=== PATIENT | female | born 1975 | race Hispanic/Latino ===

== ENCOUNTER 2018-05-16 11:58 | Emergency (ER) | payer MEDICAID ==
[2018-05-16 12:02] VITALS: BMI 23.1
[2018-05-16 12:18] VITALS: RESP 18; TEMP 98.3
[2018-05-16] MEDS ORDERED: Albuterol-Ipratrop 3 mg / 0.5 (3 ml) UD IH STA (12:23)
--- NOTE | 2018-05-16 12:28 | ED PDOC ---
Arrival/HPI - General Chief Complaint: Respiratory Distress Time Seen by Provider: 05/16/18 12:04 Historian: Patient, EMS - History of Present Illness Narrative History of Present Illness (Text): 42 yr old F w/ hx of asthma, Bipolar, depression, hypothyroid p/w sob. Sob began x2d ago, feels exactly alike previous asthma exacerbation. She notes using her inhaler at home without much improvement. No recent steroid usage. No new medications. No B-nestor usage. No leg swelling. No hx of blood clots. No chest pain. She notes going to an urgent care today who sent her here because of her asthma. No other complaints. Past Medical History - Infectious Disease Hx of Infectious Diseases: None - Tetanus Immunization Tetanus Immunization: Unknown - Past Medical History Past Medical History: Unable to Obtain - Cardiac Hx Pacemaker: No - Pulmonary Hx Asthma: Yes - Neurological Hx Paralysis: No - Hematological/Oncological Hx Cancer: Yes (thyroid ca) - Musculoskeletal/Rheumatological Hx Musculoskeletal Disorders: No - Psychiatric Hx Bipolar Disorder: Yes Hx Depression: Yes Hx Emotional Abuse: No Hx Physical Abuse: No Hx Substance Use: No Other/Comment: ADHD - Past Surgical History Past Surgical History: Unable to Obtain - Surgical History Hx Thyroidectomy: Yes Other/Comment: oophorectomy - Anesthesia Hx Anesthesia: Yes Hx Anesthesia Reactions: No Hx Malignant Hyperthermia: No - Suicidal Assessment Feels Threatened In Home Enviroment: No Family/Social History Family/Social History: Unknown Family HX Smoking Status: Light Smoker < 10 Cigarettes Daily Hx Alcohol Use: No Hx Substance Use: No Hx Substance Use Treatment: No Allergies/Home Meds Allergies/Adverse Reactions: Allergies azithromycin [From Zithromax] Allergy (Verified 05/16/18 12:18) RASH cat dander Allergy (Verified 05/16/18 12:18) CONGESTION pneumococcal vaccine Allergy (Verified 05/16/18 12:18) SWELLING Home Medications: Home Meds Medication Instructions Recorded Confirmed Escitalopram [Lexapro] 20 mg PO DAILY 10/14/15 05/16/18 Lamotrigine [Lamotrigine ER] 300 mg PO HS 10/14/15 05/16/18 Levothyroxine Sodium [Synthroid] 125 mcg PO DAILY 10/14/15 05/16/18 Albuterol HFA [Ventolin HFA 90 2 puff IH [id number] 05/16/18 05/16/18 mcg/actuation (8 g)] Review of Systems - Review of Systems Constitutional: absent: Fatigue, Weight Change, Fevers, Night Sweats Eyes: absent: Vision Changes, Photophobia, Eye Pain ENT: absent: Hearing Changes, Tinnitus, TMJ Pain, Voice Changes, Sore Throat, Rhinorrhea, Epistaxis, Sinus Congestion Respiratory: SOB, Wheezing. absent: Cough, Sputum Cardiovascular: absent: Chest Pain, Palpitations, Edema, Calf Pain, CHAPA Gastrointestinal: absent: Abdominal Pain, Stool Changes, Constipation, Diarrhea, Nausea, Vomiting, Appetite Changes, Hematochezia, Hematemesis, Anorexia, Food Intolerance Genitourinary Female: absent: Dysuria, Frequency, Hematuria Musculoskeletal: absent: Arthralgias, Back Pain, Neck Pain Skin: absent: Rash, Pruritis, Skin Lesions Neurological: absent: Headache, Dizziness, Focal Weakness Endocrine: absent: Diaphoresis, Polyuria Physical Exam Vital Signs Reviewed: Yes Vital Signs Temp Pulse Resp BP Pulse Ox 05/16/18 12:18 18 99 05/16/18 12:17 98.3 F 116 H 18 128/87 95 Temperature: Afebrile Blood Pressure: Normal Pulse: Regular Respiratory Rate: Normal Appearance: Positive for: Well-Appearing, Non-Toxic, Comfortable Pain Distress: None Mental Status: Positive for: Alert and Oriented X 3 - Systems Exam Head: Present: Atraumatic Pupils: Present: PERRL Extroacular Muscles: Present: EOMI Conjunctiva: Present: Normal Ears: Present: Normal, NORMAL TM Mouth: Present: Moist Mucous Membranes Pharnyx: Present: Normal. No: ERYTHEMA, EXUDATE Nose (External): Present: Atraumatic Nose (Internal): Present: Normal Inspection Neck: Present: Normal Range of Motion. No: Meningeal Signs, MIDLINE TENDERNESS Respiratory/Chest: Present: Good Air Exchange, Wheezes (mild, at bases). No: Respiratory Distress, Accessory Muscle Use, Decreased Breath Sounds, Rales, Ret racting, Rhonchi, Tachypneic Cardiovascular: Present: Regular Rate and Rhythm, Normal S1, S2. No: Murmurs Abdomen: Present: Normal Bowel Sounds. No: Tenderness, Distention, Peritoneal Signs Back: Present: Normal Inspection. No: CVA Tenderness Upper Extremity: Present: Normal Inspection. No: Cyanosis Lower Extremity: Present: Normal Inspection. No: Edema Neurological: Present: GCS=15, CN II-XII Intact, Speech Normal Skin: Present: Warm, Dry, Normal Color. No: Rashes Psychiatric: Present: Alert, Oriented x 3, Normal Insight. No: Normal Mood, Anxious, Agitated, Depressed Mood, Suicidal Ideation, Homicidal Ideation, Delusional Medical Decision Making ED Course and Treatment: 42 yr old F w/ hx of asthma, previous admissions but no intubations p/w sob. Wheezing on exam, mild asthma on evaluation. No chest pain. No SI or HI or depression or hallucinations. No new abx usage. Likely Mild asthma exacerbation. Was given solumedrol IM, x2 duoneb per EMS with improvement. Speaking in full sentences in no distress, will seek XR. Pending imaging, reassessment 05/16/18 13:46 Procedure: Chest X-ray Time: 05/16/2018 13:35:07 Dictator: Dr. Damon. James BURROUGHS Impression: No active disease. 05/16/18 14:05 xray unremarkble pt in NAD, speaking in full sentences /w out distress lungs CTA b/l clear or d/c, given return indications, scripts and f/u, pt agreeable to plan. Disposition/Present on Arrival - Present on Arrival Any Indicators Present on Arrival: No History of DVT/PE: No History of Uncontrolled Diabetes: No Urinary Catheter: No History of Decub. Ulcer: No History Surgical Site Infection Following: None - Disposition Have Diagnosis and Disposition been Completed?: Yes Diagnosis: Asthma exacerbation Disposition: HOME/ ROUTINE Disposition Time: 14:06 Condition: GOOD Discharge Instructions (ExitCare): Asthma in Adults, Asthma, Adult (DC) Additional Instructions: STOP SMOKING. RETURN IF YOU FEEL MORE SOB THAT IS NOT RELIEVED WITH THE INHALER AND OR STEROIDS JEROMY SCHWAB, thank you for letting us take care of you today. Your provider was Salvador Maldonado and you were treated for SOB. The emergency medical care you received today was directed at your acute symptoms. If you were prescribed any medication, please fill it and take as directed. It may take several days for your symptoms to resolve. Return to the Emergency Department if your symptoms worsen, do not improve, or if you have any other problems. Please contact your doctor or call one of the physicians/clinics you have been referred to that are listed on the Patient Visit Information form that is included in your discharge packet. Bring any paperwork you were given at discharge with you along with any medications you are taking to your follow up visit. Our treatment cannot replace ongoing medical care by a primary care provider outside of the emergency department. Thank you for allowing the [facility] team to be part of your care today. If you had an X-Ray or CT scan: A Radiologist will review the ED reading if any change in treatment is needed we will contact you. If you had a blood, urine, or wound culture: It will take several days for the results, if any change in treatment is needed we will contact you. If you had an STI test: It will take 48 hours for the results. Please call after 1 week if you have not heard back. Prescriptions: Albuterol HFA [Ventolin HFA 90 mcg/actuation (8 g)] 1 puff IH Q4H PRN 90 Days inhaler PRN Reason: Shortness Of Breath predniSONE [Prednisone] 40 mg PO DAILY 5 Days #10 tab Referrals: Tressa Iqbal MD [Primary Care Provider] - Follow up with primary Flakito Calderon MD [Staff Provider] - Follow up with primary Forms: Mtime (H[place]ian)
--- NOTE | 2018-05-16 13:38 | RAD ---
Date of service: 05/16/2018 HISTORY: sob, asthma COMPARISON: 03/25/2013 TECHNIQUE: Chest PA and lateral FINDINGS: LUNGS: No active pulmonary disease. PLEURA: No significant pleural effusion identified. No pneumothorax apparent. CARDIOVASCULAR: No aortic atherosclerotic calcification present. Normal cardiac size. No pulmonary vascular congestion. OSSEOUS STRUCTURES: No significant abnormalities. VISUALIZED UPPER ABDOMEN: Normal. OTHER FINDINGS: None. IMPRESSION: No active disease.
[2018-05-16 14:24] VITALS: BP 109/49; PULSE 107; O2SAT 94
== END 2018-05-16 14:23 | disposition home or self-care (01) ==
LOC: ED 11:58
DX: J45.901 Unspecified asthma with (acute) exacerbation (principal); F17.210 Nicotine dependence, cigarettes, uncomplicated